=== PATIENT | female | born 1955 | race Caucasian/White ===

== ENCOUNTER 2020-07-01 07:57 | Observation (INO) ==
--- NOTE | 2020-06-10 14:47 | PAT Medication Instructions ---
Medication Instructions Date of Service June 10, 2020 Home Medications Women's 50 Plus Daily Formula 1 tab PO QAM cholecalciferol (vitamin D3) [Vitamin D3] 4,000 unit PO QAM aspirin 81 mg tablet,delayed release 81 mg PO HS ferrous sulfate [Iron (ferrous sulfate)] 325 mg PO 2XWK hydrochlorothiazide 25 mg PO QAM losartan 50 mg PO QAM sertraline 50 mg PO HS DO NOT take the morning of surgery ferrous sulfate [Iron (ferrous sulfate)] 325 mg PO 2XWK hydrochlorothiazide 25 mg PO QAM losartan 50 mg PO QAM Women's 50 Plus Daily Formula 1 tab PO QAM cholecalciferol (vitamin D3) [Vitamin D3] 4,000 unit PO QAM Take evening before surgery aspirin 81 mg tablet,delayed release 81 mg PO HS sertraline 50 mg PO HS OTHERWISE NOTHING TO EAT OR DRINK AFTER MIDNIGHT Other Notes If you have any questions please call us at [phone] or [phone] or [phone] or [phone]
--- NOTE | 2020-06-11 09:32 | Anesthesiology Consultation ---
Date of Service June 11, 2020 Assessment & Plan (1) Encounter for pre-operative examination: COVID Status: As of 06/11 assessment, patient denies travel to endemic area, known exposure/sick contacts, or symptoms of COVID19. Patient instructed that they and their household members must follow strict social distancing guidelines, wear a mask in public and avoid travel for 14 days prior to surgery. Preoperative COVID19 testing to be completed prior to surgery per surgeon's arr angements. Patient made aware to self-isolate as much as possible between COVID testing and surgery. Chart Review Chart Review: Acceptable Risk for Surgery (Pending surgeon ordered PCP clearance and pulmonology clearance) and Patient seen in Pre Admission Testing Teaching & Discussion Instructed NPO after midnight before surgery, except medications with 15 cc of water. Medication instructions provided according to the PAT guidelines. History Surgery Operation Date: 07/01/20 07:00 Proposed Procedures p Right Total Knee Arthroplasty - Dwayne Yoana Faye MD Height/Weight Height: 5 ft 1 in Weight: 64 kg Allergies Allergy/AdvReac Type Severity Reaction Status Date / Time No Known Allergies Allergy Verified 06/06/20 13:58 Medications Home Medications Medication Instructions Recorded Confirmed Last Taken Women's 50 Plus Daily Formula 1 tab PO QAM 07/10/18 06/06/20 07/09/19 08:00 cholecalciferol (vitamin D3) 4,000 unit PO QAM 07/10/18 06/06/20 07/09/19 08:00 [Vitamin D3] aspirin 81 mg tablet,delayed 81 mg PO HS 06/05/19 06/06/20 07/07/19 21:00 release ferrous sulfate [Iron (ferrous 325 mg PO 2XWK 06/06/20 06/06/20 Unknown sulfate)] hydrochlorothiazide 25 mg PO QAM 06/06/20 06/06/20 Unknown losartan 50 mg PO QAM 06/06/20 06/06/20 Unknown sertraline 50 mg PO HS 06/06/20 06/06/20 Unknown Past Medical History Medical History Acute medial meniscus tear of right knee Chronic stridor S/P TRACHEAL DILATION x 3, 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 [place] [facility] [facility]; NO CURRENT SYMPTOMS Depression Hypertension Knee pain Exercise / Class Metabolic Activity II 4-5 Yardwork/Stairs/Walk up hill (Denies CP or SOB with 1 FOS, just moving slowly) Past Family History Family History (Updated 06/06/20 @ 14:03 by Mary Ann Chand RN) Mother Breast cancer Sister Breast cancer Brother Myocardial infarction Father Coronary heart disease Myocardial infarction Uncle Family history of diabetes mellitus Aunt Family history of diabetes mellitus Other No family history of adverse response to anesthesia Ulcerative colitis Denies family history of Ovarian cancer Prostate cancer Colorectal cancer Past Surgical History Surgical History History of arthroscopy of right knee History of colonoscopy with polypectomy History of dilatation and curettage History of laparoscopy History of laryngoscopy X3 (TRACHEAL DILATION 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 History of tonsillectomy Past Anesthesia History No Hx of Anesthesia Complications and No Family Hx of Anesthesia Complications History of PONV No Hx of PONV and No Hx of Motion Sickness Social History Smoking Status: Never smoker Do You Dip or Chew Tobacco: No Hx Alcohol Use: No Hx Substance Use: No substance use type: does not use Review of Systems Pt denies any recent chest pain, shortness of breath, cough, fever, URI, or uncontrolled acid reflux. +occ palpitations with anxiety Physical Exam Vital Signs BP: 113/73 P: 87bpm SPO2: 98% RA T: 97.8 F R: 16 ENMT Mouth: + dentition abnormality (missing all bottom molars) and + dentures (full upper); no chipped teeth and no loose teeth Thyromental Distance: > or= 3.5 Finger Breadths Mallampati Class: I Neck normal visual inspection; neck extension not limited Respiratory normal respiratory effort Auscultation: lungs clear to auscultation bilaterally Cardiovascular Rate/Rhythm: regular rate and regular rhythm Heart Sounds: no murmur Extremities: no edema Testing Laboratory Results Blood Type Cancelled 06/11/20 09:42 Antibody Screen Cancelled 06/11/20 09:42 06/04/20 WBC: 4.23 H/H: 11.7/35.5 PLATELETS: 346 SODIUM: 140 POTASSIUM: 3.7 CHLORIDE: 107 CO2: 25 BUN: 16 CREATININE: 0.91 GLUCOSE: 87 PT: 10.9 PTT: 27.9 INR: 1.0 TYPE AND SCREEN: O + / antibody negative Electrocardiogram Date: 06/04/20 Sinus rhythm at 65 bpm with short ME. Nonspecific ST abnormality. No significant change from 07/03/2018. Chest X-Ray Date: 01/22/20 Findings: + NAD
[2020-06-11 10:51] LABS: Alanine Aminotransferase 21 U/L (12-78); Alkaline Phosphatase 84 U/L (45-117); Aspartate Aminotransferase 19 U/L (15-37); Bilirubin Direct < 0.1 mg/dl (0-0.2); Bilirubin,Total 0.3 mg/dl (0.2-1)
[~2020-07-01 07:57] MED LIST: BUPIVACAINE 0.25% 30 ML VIAL ONE; BUPIVACAINE 0.5 % 5 MG/1 ML PF 10ML VIAL ONE; CEFAZOLIN 2000MG 2,000 MG/15 ML SYR IV SCH; CeleBREX 200 MG CAP PO SCH; LR 500ML BOLUS, THEN 15ML/HR IV SCH; LR 60ML/HR IV SCH; ROPIVACAINE 0.5% HCL/PF 150 MG, BUPIVACAINE 0.5% MPF 30 ML, EPINEPHrine 0.15 MG, Ketoro... INFIL SCH; TRANEXAMIC ACID 1,000 MG **IV Intra-op IV SCH; TRANEXAMIC ACID 1,000 MG **IV Pre-op IV SCH
[2020-07-01] MEDS ORDERED: PROPOFOL IV EMULSION 10 MG/ML 20 ML VIAL IV ONE ×3 (08:01→13:23)
[2020-07-01] MEDS ORDERED: MIDAZOLAM HCL 1 MG/ML 2ML VIAL ONE ×2 (08:01→12:22)
[2020-07-01] MEDS ORDERED: LIDOCAINE HCL 2% 2 ML VIAL/AMP(20MG/ML) INFIL ONE (08:01)
[2020-07-01] MEDS ORDERED: fentaNYL citrate 100 MCG/2 ML VIAL ONE (08:01)
[2020-07-01] MEDS ORDERED: fentaNYL citrate 100 MCG/2 ML VIAL IV PRN (09:51)
[2020-07-01] MEDS ORDERED: ONDANSETRON INJ 2 MG/ML 2 ML VIAL IV PRN ×2 (09:51→14:59)
[2020-07-01] MEDS ORDERED: ATROPINE SULFATE 0.1 MG/ML 10ML SYR IV PRN (09:51)
[2020-07-01] MEDS ORDERED: ePHEDrine sulfate 50 MG/ML AMP IV PRN (09:51)
--- NOTE | 2020-07-01 10:59 | History & Physical Bridge Note ---
Date of Service July 01, 2020 History & Physical Bridge Note I have examined the patient, reviewed the History & Physical and in the interval since the performance of the History & Physical I have noted the following changes of clinical significance: no changes noted Patient is aware of the risks, is asymptomatic, and tested negative for COVID- 19.
[2020-07-01] MEDS ORDERED: ORTHO JOINT ANESTHETIC ONE (11:09)
[2020-07-01] MEDS ORDERED: ePHEDrine sulfate 50 MG/ML SYR ONE (13:24)
--- NOTE | 2020-07-01 14:31 | Operative Report ---
Post Operative Report Pre & Post Diagnosis Operation Date: 07/01/20 10:15 Pre-Op Diagnosis: Right Knee Osteoarthritis Post-Op Diagnosis: Right Knee Osteoarthritis I identified the patient and participated in the time-out.: Yes Procedure Operation Date: 07/01/20 10:15 Actual Procedures p Right Total Knee Arthroplasty(Right) - Dwayne Faye MD Surgeon Dwayne Faye MD Cooling Machine Operator Genevieve Ledesma MD & Jael Kay PA-C Estimated Blood Loss 100 Findings See Below Examined Under Anesthesia: ROM -- There was 20 degrees to 110 degrees of flexion Ligamentous examination -- revealed stable Aba, posterior drawer, varus and valgus stress at 20 and 30 degrees. Outerbridge Type III changes of in all 3 compartments. Significant synovitis with substantial adhesions. Fluids 1700 cc Specimens R knee contents Drains n/a Anesthesia Type MAC Spinal Regional Complications none Indications This is a 65-year-old female who has clinical and radiographic findings consis tent with osteoarthritis of the a right knee, that has failed conservative treatment. I recommended that a right total knee replacement be performed. The patient understands the risks of surgery, which include but not limited to: bleeding, infection, re-operation, damage to nerves and arteries, continued knee pain, knee stiffness, DVT, and . The patient understands all of these instructions and explanations, all of his questions have been satisfactorily addressed and the patient has elected to proceed. Informed consent was signed. Description of Procedure IMPLANTS: 1. Femur: Triathlon #4 Right PS. 2. Tibia: Triathlon #3 [place]. 3. Insert: Triathlon #3 x 11 mm PS X3 poly. 4. Patella: Triathlon A29 x 9 mm X3 poly. 5. Palacos cement. PROCEDURE: The patient was taken to the Operating Room and placed in the supine position after spinal and adductor canal nerve block was administered. My initials and a multidisciplinary time-out were used to identify the right leg as the correct operative limb. A tourniquet was placed high in the thigh. Prior to the incision, 2 grams of intravenous Ancef were given. The right leg was then prepped and draped in a standard sterile fashion. An Esmarch was used to exsanguinate the leg and the tourniquet was inflated to 250 mmHg. The planned mid-line 20 cm incision was created exposing the extensor mechanism. The medial parapatellar arthrotomy was made and the patella was everted. A synovectomy was preformed. The patella was addressed first. It was prepared by reaming from 21 mm down to 12 mm. An A29 button was found to fit best. The peg holes were made in the standard fashion. The femur was addressed next and the guide mary kate was placed intramedullary. The initial cutting block was placed with 5 degrees of valgus and removing 10 mm for the distal cut. The cut was made and the 4-in-1 cutting block for a size 4 femur was placed. These cuts and the cuts to place the box were made in the standard fashion. Our attention was then drawn to the tibia cut with the external cutting guide, taking 2 mm from the medial low side. There was sufficient extension and flexio n gap to fit a 11 mm spacer. A #3 Tibial baseplate fit well. A trial with a 11 mm spacer showed excellent stability in both flexion and extension, with good ligament balance. Range of motion of 0-125 degrees. The tibial baseplate was pinned and the final preparation for the keel and stem was made. All the trial components were tested again, with good stability and thumbs free tracking of the patella. All components were removed. The tourniquet was deflated. Hemostasis was obtained. 90 ml of total knee cocktail were injected into the soft tissues and periosteum. A bone plug was placed in the femur and covered with bone wax. After a 15 minute break, the limb was exsanguinated again and the tourniquet was re-inflated. All surfaces were copiously irrigated prior to placement of the components. The femoral component and Tibial baseplate were placed with the first batch as the cement cured and an 11 mm trial placed. The patellar button was placed next with same batch of using Palacos cement. Again with the 11 mm trial poly the range of motion and stability were unchanged. Once the cement had cured, the 11 mm X3 poly was placed, which showed excellent stability and ROM of 0-125 deg. The extensor mechanism was closed with 1-0 and 0 Vicryl with the knee bent approximately 60 degrees in a standard fashion. The peritenon and deep fascia was closed with 2-0 Vicryl. The subcutaneous layer was closed with 3-0 Vicryl. The skin was closed with Zipline. The limb was cleaned and dried. 4x4 dressing was placed over top followed by ABDs, sterile Webril, and a foot to thigh Carlos bandage. The patient was then transferred to the Recovery Room in stable condition. The sponge and needle counts were correct. POST-OP INSTRUCTIONS: The patient will be WBAT. The patient will be admitted to the hospital. The patient will use the knee immobilizer when ambulating and standing until good quad control is achieved. Labs will be obtained during the stay. DVT prophylaxis will included aspirin for 6 weeks, TEDs, and mechanical foot pumps. The dressing will be changed prior to their discharge or postop day #2 and covered with a Silverlon dressing, whichever comes first. I attest to the content of the Intraoperative Record and any orders documented therein. Any exceptions are noted below.
--- NOTE | 2020-07-01 14:31 | Post Operative Brief Note ---
Immediate Post Op Note v1 Date of Surgery July 01, 2020 Pre & Post Diagnosis Operation Date: 07/01/20 10:15 Pre-Op Diagnosis: Right Knee Osteoarthritis Post-Op Diagnosis: Right Knee Osteoarthritis I identified the patient and participated in the time-out.: Yes Procedure Operation Date: 07/01/20 10:15 Actual Procedures p Right Total Knee Arthroplasty(Right) - Dwayne Faye MD Surgeon Dwayne Faye MD Landscape Nurseryman Genevieve Ledesma MD & Jael Kay PA-C Estimated Blood Loss 100 Findings Consistent with Post-Op Diagnosis Fluids 1700 cc Specimens R knee contents Anesthesia Type MAC Spinal Regional Complications none
[2020-07-01] MEDS ORDERED: HYDROmorphone INJ 0.5 MG/0.5 ML SYR IV PRN (14:59)
[2020-07-01] MEDS ORDERED: MAGNESIUM HYDROXIDE SUSP 30 ML UDC PO PRN (14:59)
[2020-07-01] MEDS ORDERED: bisacodyL 10 MG SUPP PR PRN (14:59)
[2020-07-01] MEDS ORDERED: DiphenhydrAMINE HCL 50 MG/ML VIAL IV PRN (14:59)
[2020-07-01] MEDS ORDERED: NALOXONE HCL 0.4 MG/1 ML VIAL/CARP IV PRN (14:59)
--- NOTE | 2020-07-01 15:19 | Anesthesiology Progress Note ---
Date of Service July 01, 2020 Anesthesia Post Procedure Vital Signs Vital Signs: Temp Pulse Pulse Resp BP Pulse Ox 07/01/20 15:10 68 15 98/55 L 98 07/01/20 15:00 74 17 103/62 99 07/01/20 14:50 36.4 C L 79 14 114/61 95 07/01/20 09:06 76 18 147/88 H 99 07/01/20 08:42 36.8 C 87 20 121/73 96 Pain Intensity Right Knee: Pain Intensity: 6 Transfer of Care Handoff Completed per policy Notes Mental Status: alert / awake / arousable Patient Amnestic to Procedure: Yes Nausea / Vomiting: adequately controlled Pain: adequately controlled Airway Patency, RR, SpO2: stable & adequate BP & HR: stable & adequate Hydration State: stable & adequate Neuraxial Anesthesia: was administered and sensory block is resolving Anesthetic Complications: no major complications apparent
--- NOTE | 2020-07-01 16:05 | XRay Report ---
XR knee RT 1 or 2V routine CLINICAL HISTORY: Surgical Post Op COMPARISON: 04/30/2020 DISCUSSION: There are postsurgical changes of a total right knee arthroplasty and patellar resurfacin g. The femoral tibial components appear well seated. There is gas present within the soft tissues con sistent with recent surgery. IMPRESSION: Postsurgical changes of a total right knee arthroplasty. ACT 112: Negative or not required by law. Electronically signed by: Delvin Garner M.D. 07/01/2020 4:03 PM
[2020-07-01] MEDS: Scopolamine CHECK PATCH PLACEMENT SCH ×2 (17:06→23:25)
[2020-07-01] MEDS: SODIUM CHLORIDE 0.9% 1000ML 1,000 ML IV SCH (17:12)
[2020-07-01] MEDS: OXYCODONE HCL IR 5 MG TAB (IMMEDIATE RELEASE) PO PRN ×2 (17:13→23:51)
[2020-07-01] MEDS: FERROUS GLUCONATE 324 MG TAB PO SCH (18:15)
[2020-07-01] MEDS: ASCORBIC ACID 500 MG TAB PO SCH (18:15)
--- NOTE | 2020-07-01 19:37 | Orthopedic Progress Note ---
Date of Service July 01, 2020 Assessment & Plan (1) Arthritis of knee, right: POD #0 s/p R TKA, doing as well as expected. Resume diet. WBAT with walker, knee immobilizer for 48 hrs or until re-establish good quad control. OOB to chair. Dressing will be changed to Silverlon dressing POD #2 or prior to discharge whichever comes first. Continue pain control. Check labs tomorrow. DVT prophylaxis: TEDs 3 weeks, foot pumps while in hospital, ASA 81 mg BID for 6 weeks. PT/OT. D/C planning. Present on Admission?: Yes Admission and Anticipated Discharge Date Admission Date: July 01, 2020 Subjective Doing ok Review of Systems Review of Systems: All systems reviewed & are unremarkable except as noted in HPI & below Physical Exam Physical Exam: RLE: BCR < 2 sec. Wiggling toes. Sensation to light touch diminished. Able to preform straight leg raise. Dressing is clean, dry, intact. Calf soft and non-tender. Results & Data ([facility]) Vital Signs (Past 12 Hours) Vital Signs Temp Pulse Pulse Resp BP Pulse Ox 07/01/20 19:13 36.4 C L 78 16 110/70 94 07/01/20 18:14 72 16 116/66 97 07/01/20 17:07 36.3 C L 70 16 116/68 97 07/01/20 16:40 36.3 C L 70 16 109/67 97 07/01/20 16:10 36.6 C 73 16 118/68 98 07/01/20 15:45 75 15 106/58 L 99 07/01/20 15:30 36.5 C 70 14 100/57 L 99 07/01/20 15:20 66 18 102/56 L 99 07/01/20 15:10 68 15 98/55 L 98 07/01/20 15:00 74 17 103/62 99 07/01/20 14:50 36.4 C L 79 14 114/61 95 07/01/20 09:06 76 18 147/88 H 99 07/01/20 08:42 36.8 C 87 20 121/73 96 Diagnostic Findings AP and Lateral Right knee shows expected findings following right TKA, with cemented components in good position.
[2020-07-01] MEDS: CEFAZOLIN 1000MG 1,000 MG/7.5 ML SYR IV SCH (19:46)
[2020-07-01] MEDS: DOCUSATE SODIUM 100 MG CAP PO SCH (20:17)
[2020-07-01] MEDS ORDERED: SERTRALINE HCL 50 MG TABLET PO SCH (21:00)
[2020-07-01] MEDS ORDERED: SENNA 8.6 MG TAB PO SCH (21:00)
[2020-07-01] MEDS: ACETAMINOPHEN 500 MG TAB PO SCH (22:21)
[2020-07-02] MEDS: SODIUM CHLORIDE 0.9% 1000ML 1,000 ML IV SCH (03:34)
[2020-07-02] MEDS: OXYCODONE HCL IR 5 MG TAB (IMMEDIATE RELEASE) PO PRN ×2 (03:54→11:28)
[2020-07-02] MEDS: CEFAZOLIN 1000MG 1,000 MG/7.5 ML SYR IV SCH (03:54)
[2020-07-02] MEDS: ACETAMINOPHEN 500 MG TAB PO SCH ×2 (04:29→14:09)
[2020-07-02 06:28] LABS: Hemoglobin 8.5 g/dL (12.0-16.0); Mean Corpuscular Hemoglobin 28.9 pg (25-34); Mean Corpuscular Hgb Conc 32.7 g/dL (32-36); Mean Corpuscular Volume 88.4 fL (80-100); Mean Platelet Volume 9.1 fL (7.4-10.4); Platelet Count 243 K/uL (130-400); RDW Coefficient of Variation 14.7 % (11.5-14.5); Red Blood Count 2.94 M/uL (4.2-5.4); White Blood Count 6.52 K/uL (4.8-10.8)
[2020-07-02 06:31] LABS: BUN Creatinine Ratio 16.7 (10-20); Calcium 8.5 mg/dl (8.5-10.1); Creatinine Clr Calc Pharmacy 49.6 ml/min; Est GFR (African American) 71.4; Est GFR (Non-African American) 61.6; Potassium 3.8 mmol/L (3.5-5.1)
[2020-07-02] MEDS: Scopolamine CHECK PATCH PLACEMENT SCH (08:43)
[2020-07-02] MEDS: ASCORBIC ACID 500 MG TAB PO SCH (08:43)
[2020-07-02] MEDS: ASPIRIN 81 MG ECTAB PO SCH ×2 (08:44→08:46)
[2020-07-02] MEDS: DOCUSATE SODIUM 100 MG CAP PO SCH (08:44)
[2020-07-02] MEDS: FERROUS GLUCONATE 324 MG TAB PO SCH (08:44)
--- NOTE | 2020-07-02 08:46 | Operative Report ---
Post Operative Report Pre & Post Diagnosis Operation Date: 07/01/20 10:15 Pre-Op Diagnosis: Right Knee Osteoarthritis Post-Op Diagnosis: Right Knee Osteoarthritis I identified the patient and participated in the time-out.: Yes Procedure Operation Date: 07/01/20 10:15 Actual Procedures p Right Total Knee Arthroplasty(Right) - Dwayne Faye MD Surgeon Dwayne Faye MD Reducing Salon Attendant Genevieve Ledesma MD & Jael Kay PA-C Estimated Blood Loss 100 Findings Consistent with Post-Op Diagnosis Specimens synovial tissue and bone cuts Anesthesia Type Spinal Complications none Disposition Accompanied Patient To Recovery: Yes Disposition: Recovery Room Description of Procedure As per Dr. Faye's note I assisted in scrubbing and draping certain parts of the procedure and wound closure I attest to the content of the Intraoperative Record and any orders documented therein. Any exceptions are noted below.
--- NOTE | 2020-07-02 08:56 | Orthopedic Progress Note ---
Date of Service July 02, 2020 Assessment & Plan (1) Arthritis of knee, right: POD #1 s/p R TKA, doing as well as expected. Resume diet. WBAT with walker, knee immobilizer for 48 hrs or until re-establish good quad control. OOB to chair. Peripheral block still functioning. - will follow. Dressing will be changed to Silverlon dressing POD #2 or prior to discharge whichever comes first. Continue pain control. Low H/H - asymptomatic, will monitor Low BP this AM, instructed nursing to hold Losartan and HCTZ this AM. DVT prophylaxis: TEDs 3 weeks, foot pumps while in hospital, ASA 81 mg BID for 6 weeks. PT/OT. D/C planning. - planning for home with home health. Will plan for discharge later today with home health if remains asymptomatic with hypotension and acute blood loss anemia. Will recheck this AM to determine. I, Dr. Faye, saw and examined the patient and discussed the management with my PA. I reviewed my PAs note and agree with the documented findings and the plan of care I developed. Dressing was removed. Incision was clean, dry, intact, show no evidence of i nfection. There was minimal dried blood on the undersurface of the dressing. Calf is soft and nontender. Sensation to light touch improved after removing the dressing over the great toe from 20->50%. Sensation in the first webspace maintained only 10% of the opposite side. The lateral toes was improved approximately 70%. With attempted great toe and foot extension, I can see the tendons firing, 2+/5. Calf is soft and nontender. Admission and Anticipated Discharge Date Admission Date: July 01, 2020 Subjective Doing well, no complaints of pain except behind her right knee. She states that she is unable to pull her ankle or big toe back. She has normal feeling on the bottom of her foot, but not the top. She's sitting in a chair, knee immobilizer in place. Tolerating a regular diet. Denies chest pain, shortness of breath, lightheadedness, dizziness with changing positions. Physical Exam Physical Exam: Exam right leg: Dressings clean and dry. Knee immobilizer in place. Able to independently SLR RLE. Unable to dorsiflex ankle or great toe. Able to feel me touching top of foot, but diminished sensation. Dorsalis pedis pulse 1+, normal sensation plantar surface of foot. Strength 5/5 with plantarflexion of foot/ankle. Results & Data ([facility]) Vital Signs (Past 12 Hours) Vital Signs Temp Pulse Resp BP Pulse Ox 07/02/20 08:41 89/57 L 07/02/20 07:49 36.6 C 69 16 93/58 L 97 07/02/20 04:02 36.5 C 79 16 107/61 97 07/01/20 23:25 36.5 C 79 16 105/65 95 Laboratory Results 07/02/20 07/02/20 Range/Units 05:39 05:39 WBC 6.52 (4.8-10.8) K/uL RBC 2.94 L (4.2-5.4) M/uL Hgb 8.5 L (12.0-16.0) g/dL Hct 26.0 L (37-47) % MCV 88.4 (80-100) fL MCH 28.9 (25-34) pg MCHC 32.7 (32-36) g/dL RDW Std Deviation 48.0 H (36.4-46.3) fL RDW Coeff of Natali 14.7 H (11.5-14.5) % Plt Count 243 (130-400) K/uL MPV 9.1 (7.4-10.4) fL Sodium 140 (136-145) mmol/L Potassium 3.8 (3.5-5.1) mmol/L Chloride 110 H (98-107) mmol/L Carbon Dioxide 24 (21-32) mmol/L Anion Gap 7.0 (3-11) BUN 16 (7-18) mg/dl Creatinine 0.96 (0.6-1.2) mg/dl Est Cr Clr Drug Dosing 49.6 ml/min Est GFR ( Amer) 71.4 Est GFR (Non-Af Amer) 61.6 BUN/Creatinine Ratio 16.7 (10-20) Glucose 135 H (70-99) mg/dl Calcium 8.5 (8.5-10.1) mg/dl Diagnostic Findings XR knee RT 1 or 2V routine CLINICAL HISTORY: Surgical Post Op COMPARISON: 04/30/2020 DISCUSSION: There are postsurgical changes of a total right knee arthroplasty a nd patellar resurfacing. The femoral tibial components appear well seated. There is gas present within the soft tissues consistent with recent surgery. IMPRESSION: Postsurgical changes of a total right knee arthroplasty.
[2020-07-02] MEDS ORDERED: MULTIVITAMIN TAB PO SCH (09:00)
[2020-07-02] MEDS ORDERED: CHOLECALCIFEROL 1,000 UNITS 25 MCG TAB PO SCH (09:00)
[2020-07-02] MEDS ORDERED: hydroCHLOROthiazide 25 MG TAB PO SCH (09:00)
[2020-07-02] MEDS ORDERED: [UNRECOGNIZED DRUG - MIXTURE] PO SCH (09:00)
[2020-07-02] MEDS ORDERED: LOSARTAN POTASSIUM 50 MG TAB PO SCH (09:00)
--- NOTE | 2020-07-02 14:57 | Orthopedic Progress Note ---
Date of Service July 02, 2020 Assessment & Plan (1) Arthritis of knee, right: POD #1 s/p R TKA, doing as well as expected (with mild foot drop to R LE) and asymptomatic post-op anemia. Regular diet. WBAT with walker, knee immobilizer for 48 hrs. OOB to chair. Peripheral block still functioning, mild foot drop with 3/5 EHL and TA strength and decreased sensation to top of foot. Patient able to ambulate with walker. Dressing changed to Silverlon. Continue PO pain control. Low H/H - asymptomatic Low BP this AM. improved by PM. Held Losartan and HCTZ this AM. DVT prophylaxis: TEDs B LE 3 weeks, foot pumps while in hospital, ASA 81 mg BID for 6 weeks. PT/OT. D/C planning. - planning for home with home health. After discussing with patient and Dr Faye, Will plan for discharge today with home health. Patient aware we will continue to hold BP meds and she should check BP daily and contact PCP tomorrow to discuss when she should restart her BP meds and if she needs seen. Patient will take iron regularly. She asymptomatic with current BP on DC at 112/68 and Hgb this am of 8.5. Admission and Anticipated Discharge Date Admission Date: July 01, 2020 Subjective Doing well. Saw Dr Faye around lunch time. He is aware of weakness to her ankle and foot with lack of sensation. He removed her post-op JOHNIE. Her is in room with her. She tolerated PT and ambulated with walker. Tolerating a regular diet and PO fluids. Pain controlled with PO pain meds. Denies chest pain, shortness of breath, lightheadedness, dizziness, S/S of DVT. Patient states she is ready to go home today. Physical Exam Physical Exam: Right knee silverlon dressing on. 1+ R knee effusion. Bruising and minimal redness WNL. Sensation intact to knee. 1+ PE R LE. B calves are soft. Neg homans. Right foot weakness noted to EHL and TA at 3/5. Sensation altered to top of foot. Otherwise intact B LE. 5/5 L LE strength. Palpable B DP and PT pulses. Results & Data ([facility]) Vital Signs (Past 12 Hours) Vital Signs Temp Pulse Resp BP Pulse Ox 07/02/20 12:45 69 112/68 07/02/20 11:40 36.5 C 77 16 94/56 L 97 07/02/20 08:41 89/57 L 07/02/20 07:49 36.6 C 69 16 93/58 L 97 07/02/20 04:02 36.5 C 79 16 107/61 97
--- NOTE | 2020-07-03 13:55 | Discharge Summary ---
Date of Service July 03, 2020 Principal Diagnosis Right Knee Osteoarthritis Discharge Data Allergies Allergy/AdvReac Type Severity Reaction Status Date / Time No Known Allergies Allergy Verified 07/01/20 08:16 Consultations 07/01/20 14:59 Consult Case Management - Discharge Planning Routine Procedures Performed Operation Date: 07/01/20 10:15 Actual Procedures p Right Total Knee Arthroplasty(Right) - Dwayne Faye MD Ordered Studies 07/01/20 05:00 US - OR guided needle placemen Routine Hospital Course (1) Arthritis of knee, right: 65 yr old female underwent Right Total Knee Arthroplasty on 07-01-[address] Faye. She tolerated spinal anesthesia and adductor block. Surgery was without complication. She was transferred to the floor admitted to observation. Her pain was controlled throughout the day and night of POD 0. However her BP was running low. On POD 0 due to low BP, her BP meds were held. Her POD 1 hgb was check and low at 8.5 but patient was asymptomatic. She denies CP, SOB, lightheadedness, or dizziness. She tolerated PO pain meds, PO diet, and PO fluids. She received PT and ambulated with a walker with knee immobilizer. No issues with gait. However, she continued to have altered sensation to her right anterior garnica and top of foot. She had weakness to her EHL and TA. Questionable residual from block or nerve irritation. Dr Faye discussed with patient and she felt ready to go home despite these issues. Dr Faye felt reasonable. Her BP throughout the day improved. Continued to be asymptomatic with post-op anemia. She was deemed stable to DC in PM. Her right knee post-op dressing was removed and waterproof silverlon dressing applied. In house DVt prophylaxis consisted of TEDS, foot pumps, and 81mg ASA BID. Upon D/C she will continue with TEDS and ASA 81mg BID. Pain meds will include tylenol and oxycodone. She was also prescribed iron and vit c bid for 2wks. All these meds were sent to her pharmacy. Patient will go home with her and HHPT. WBAT with walker and knee immobilizer for another 24hrs while ambulating. Patient will continue with ice and elevation. She will let me know if she develops foot drop or has issues ambulating and we will consider AFO, however, we feel these symptoms will improve. In regards to her low BP, I advised she hold her BP meds upon DC and monitor daily. She will contact her PCP to discuss when she should restart. She will follow-up in the office 2wks post-op. She was instructed to call the office or go to the emergency room with any questions or concerns. Please see below for further more detailed discharge instructions. Total Time Total Time Spent Total Time Spent (In Minutes): 20 minutes Discharge Plan Discharge Items Patient Disposition: Home - Home Health Services Reason For Visit: Right Knee Osteoarthritis Discharge Diagnosis: Right Knee Osteoarthritis Activity: Per Instructions section Bathing Comment: keep post-op silverlon waterproof dressing on; do not submerge; can shower Exercise Comment: per physical therapy Driving/Machine Use: wait until seen in office Weightbearing: Right weightbearing Weightbearing Comment: as tolerated with walker as needed Non-emergency contact: Surgeon Call non-emergency contact if: your temperature is above 101.5, your wound has increased redness and your wound has increased drainage Follow-up/Referrals: Desirae Oh MD [Primary Care Provider] - Evy Kay P.A.-C. [Physician Matrix Supervisor] - 07/16/20 11:15 am Diet: Regular Addtl Attending Provider Instructions: Post-operative Instructions Pain Expect to be in a fair amount of pain after surgery. Remember, our goal is not to eliminate your pain, but to make it tolerable. It is a good idea to stay ahead of your pain by taking the medications you were prescribed once you get home. Typically, the pain starts improving 3-7 days after surgery. You should start weaning off the narcotic pain medication (oxycodone) as soon as your pain improves. Please call our office if your pain is not adequately controlled. You can take tylenol 1000mg every 8hrs for mild to moderate pain. Ice Ice your operative site at least 5 times a day for 15-30 minutes at a time. Make sure you have a thin cloth between the ice or cooling unit and your skin to prevent doty bite. This is especially important if you received a nerve block. Continue icing your operative site for the first 5-7 days after surgery, then as needed. Diet/Nausea/Vomiting Start by drinking clear liquids and eating crackers. If you can tolerate this, then you may resume your normal diet. If you feel nauseated or vomit, take Zofran/ondansetron (if prescribed). Please call our office if you have intractable nausea or vomiting, or, if after hours, you may go to the Emergency Room for help. Constipation Constipation is a common side effect of narcotic pain medication. If you have not had a bowel movement within 2 days after surgery, we recommend purchasing an over the counter laxative such as Milk of Magnesia, Dulcolax, or Miralax from a local pharmacy, and taking it as instructed. Call our clinic if any questions. Weight bearing and Range of Motion. Weightbearing as tolerated with walker. No restrictions with range of motion. *KNEE IMMOBILIZER x 48hrs AFTER SURGERY WHILE AMBULATING AND THEN CAN STOP (CONTINUE IF YOU DO NOT HAVE GOOD QUAD CONTROL)* Physical therapy Initially you will start with home health physical therapy. At our first visit with at our office we will provide you with script for outpatient physical therapy. Wound care and showering We will inspect your wound at your first post-operative visit, and may do a dressing change at that time. Most patients will be in a water-proof dressing that is removed 14 days after surgery. It is normal to see some dried blood on the dressing. Do not remove your dressing, paper strips or sutures yourself unless you are given permission. Showering is allowed the day after surgery. Do not scrub or remove any dressings. The wound should not be submerged underwater (i.e. in a bathtub or pool) until 4 weeks after surgery DINORAH stockings If you were given white stockings, these are to be worn at all times except to shower and sleep (on both legs) for the first 2 weeks after surgery. We will discuss removal at your first follow-up appointment. Driving You may not drive while taking narcotic pain medication. We will discuss return to driving at your first follow-up appointment. Return To Work Your return to work depends on what surgery was done and what type of work you do. Please bring any paperwork your employer needs completed to your first post-operative visit. Also, bring a description of your job duties, as this helps us to understand what risks you may face at work. Travel Avoid long distance travel (greater than 1 hour) in airplanes and cars for the first 6 weeks after surgery if possible. If you must travel, please let us know so we can discuss additional measures to prevent blood clots. Follow-up You should have a follow-up appointment already scheduled for 2 weeks after surgery. If not, please contact our office to make this appointment before you leave the hospital. When to call the office [phone] It is normal to have swelling and bruising in the limb that was operated on. This will improve with time. It is also normal to have fevers for the first 2 days after surgery. Reasons you should call your doctor include: Uncontrolled pain; Nausea, vomiting, or constipation that does not improve with medication; Fevers over 101.5, chills, sweats; Drainage or bleeding from the wound; Foul odor; Spreading areas of redness; Any other concerns. NEW MEDICATIONS: new medications will be sent to your pharmacy: oxycodone, iron, vit c, tylenol, aspirin. PLEASE CALL YOUR MEDICAL DOCTOR ABOUT YOUR LOW BLOOD PRESSURE AND WHEN YOU HUNTER ULD RESTART YOUR BLOOD PRESSURE MEDICATION. CHECK YOUR BLOOD PRESSURE DAILY. ALSO PLEASE CALL THE OFFICE IF YOU DEVELOP FOOT DROP IN YOUR RIGHT FOOT AND HAVE ISSUES WITH YOUR FOOT GETTING CAUGHT DURING GAIT Pending Studies at Discharge: No Stand-Alone Forms: [facility], [facility]io[facility], Smoking Cessation Medications and DC Order Prescriptions: New aspirin 81 mg Tablet,Delayed Release (Dr/Ec) 81 mg PO BID 42 Days Qty: 84 RF: 0 acetaminophen 500 mg Tablet 1,000 mg PO Q8 Qty: 90 RF: 0 ascorbic acid (vitamin C) [Vitamin C] 500 mg Tablet 500 mg PO BIDM 14 Days Qty: 28 RF: 0 oxycodone 5 mg Tablet 5 - 10 mg PO Q4H PRN (Reason: pain) Qty: 30 RF: 0 ferrous gluconate 324 mg (38 mg iron) Tablet 324 mg PO BIDM 14 Days Qty: 28 RF: 0 Continued cholecalciferol (vitamin D3) [Vitamin D3] 2,000 unit Capsule 4,000 unit PO QAM RF: 0 Women's 50 Plus Daily Formula 400 mcg-500 mg calcium-20 mcg Tablet 1 tab PO QAM RF: 0 sertraline 50 mg tablet 50 mg PO HS RF: 0 Discontinued aspirin 81 mg tablet,delayed release (DR/EC) 81 mg PO HS RF: 0 losartan 50 mg tablet 50 mg PO QAM RF: 0 hydrochlorothiazide 25 mg tablet 25 mg PO QAM RF: 0 ferrous sulfate [Iron (ferrous sulfate)] 325 mg (65 mg iron) Tablet 325 mg PO 3XWK RF: 0 Discharge Orders: Discharge Order (Routine); Ordered 07/02/20 Ordered By: Evy Coronel/Other Patient Handouts: DVT Post Op Prevention, Total Knee Replacement Admission Data Admit Date/Time: 07/01/20 14:59 Attending Provider: Dwayne Faye Admit Provider: Dwayne Faye Primary Care Provider: Desirae Oh Other Providers: [facility],Home Healthcare Other Interventions: Discharge Summary Assessment (RN) Last Done: 07/02/20 14:47
== END 2020-07-02 16:22 | disposition home health service (06) ==
LOC: 3E 07:57 → ASU 07:57